=== PATIENT | female | born 1990 | race Caucasian/White ===

== ENCOUNTER 2018-05-05 08:43 | Emergency (ER) | payer MEDICAID, OTHER ==
[2018-05-05 08:46] VITALS: RESP 16
[2018-05-05] MEDS ORDERED: Sodium Chloride 0.9% 1,000 ML IV STA (09:22)
[2018-05-05 09:41] LABS: BASO % 0.2 % (0.0-2.0); EOS # 0.1 K/uL (0.0-0.7); EOS % 0.6 % (0.0-4.0); HEMOGLOBIN 12.7 g/dL (12.0-16.0); LYMPH # 1.8 K/uL (1.0-4.3); LYMPH % 20.9 % (20.0-40.0); MEAN CELL VOLUME 86.2 fl (81.0-99.0); MEAN CORPUSCULAR HEMOGLOBIN 29.4 pg (27.0-31.0); MEAN CORPUSCULAR HGB CONC 34.2 g/dL (33.0-37.0); MEAN PLATELET VOLUME 7.4 fl (7.2-11.7); MONO # 0.4 K/uL (0.0-0.8); MONO % 5.1 % (0.0-10.0); NEUT # 6.4 K/uL (1.8-7.0); NEUT % 73.2 % (50.0-75.0); NRBC % 0.2 % (0.0-0.0); RBC 4.31 Mil/uL (3.80-5.20); RED CELL DISTRIBUTION WIDTH 13.4 % (11.5-14.5); WHITE BLOOD COUNT 8.7 K/uL (4.8-10.8)
[2018-05-05 10:06] LABS: SQUAMOUS EPITHIAL 13 /hpf (0-5); URINE AMORPHOUS SEDIMENT RARE /ul (<OCC); URINE BACTERIA FEW (<OCC); URINE BILIRUBIN NEGATIVE (NEGATIVE); URINE BLOOD NEGATIVE (NEGATIVE); URINE CLARITY CLOUDY (Clear); URINE COLOR YELLOW (YELLOW); URINE GLUCOSE (UA) NEG (Normal); URINE LEUKOCYTE ESTERASE LARGE Leu/uL (Negative); URINE PROTEIN NEGATIVE (NEGATIVE); URINE UROBILINOGEN 0.2-1.0 mg/dL (0.2-1.0)
[2018-05-05 10:08] LABS: ALT/SGPT 19 U/L (9-52); AST/SGOT 16 U/L (14-36); BLOOD UREA NITROGEN 5 mg/dl (7-17); GFR AFRICAN-AMERICAN > 60; GFR NON-AFRICAN AMERICAN > 60
[2018-05-05 10:21] LABS: ALB/GLOB RATIO 1.1 (1.0-2.1); ALBUMIN 3.5 g/dL (3.5-5.0)
--- NOTE | 2018-05-05 12:20 | US ---
PROCEDURE: Ultrasound of the Kidneys HISTORY: 17 wks preg L flank pain COMPARISON: None available. TECHNIQUE: Sonogram of the kidneys. FINDINGS: RIGHT KIDNEY: Measures: 11.4 x 6.5 x 5.2 cm. Normal in size, contour and echogenicity. No stone, solid mass lesion or hydronephrosis visualized. LEFT KIDNEY: Measures: 11.0 x 5.6 x 5.4 cm. Normal in size, contour and echogenicity. No stone, solid mass lesion or hydronephrosis visualized. OTHER FINDINGS: None. IMPRESSION: Unremarkable renal sonogram.
--- NOTE | 2018-05-05 12:56 | US ---
PROCEDURE: OB Pelvic Ultrasound HISTORY: 17wk preg L flank pain and pelvic pain LMP: Unsure COMPARISON: None available. FINDINGS: UTERUS: A single intrauterine gestation with cardiac activity 132.3 beats per minute in variable presentation is noted. The placenta is anterior. The inferior placental border is more low lying and marginal. No complete covering over the internal cervical os noted. On the prevoid images question of a small subchorionic residual bleed here was initially raised measuring 1.4 x 4.5 x 1.3 cm in size. -however this could not be reproduced on the postvoid images. Findings are indeterminate . age (Ultrasound estimated): 19 weeks 0 days 1 week 2 days. Kyra-gestational hemorrhage: None. Date of delivery (Ultrasound estimated) : 09/29/2018 No uterine mass seen. Normal in size and appearance. No suspect discordance of biometric parameters noted. The visualized anatomy appears grossly unremarkable. CERVIX: Measures 6 cm. Long and closed. No cervical abnormality seen. RIGHT OVARY: Nonvisualized. LEFT OVARY: Nonvisualized. FREE FLUID: None. OTHER FINDINGS: None. IMPRESSION: Single intrauterine gestation with normal cardiac activity menstrual age by multiple ultrasound parameters is 19 weeks 0 days 1 week 2 days with an estimated date of delivery of 09/29/2018. Clinical dates are not definite. Anterior placenta and low lying./marginal. Possible perigestational/subchorionic hemorrhage here bordering the inferior placenta margin. This was initially questioned on the prevoid images but could not be reproduced on the postvoid images. The findings are indeterminate. No placenta covering the internal cervical os noted. No fluid in the endocervical canal seen. No adnexal masses noted Consider follow-up OB consultation
--- NOTE | 2018-05-05 13:26 | ED PDOC ---
HPI: General Adult Time Seen by Provider: 05/05/18 09:16 Chief Complaint (Nursing): Abdominal Pain Chief Complaint (Provider): Left Flank and Pelvic Pain History Per: Patient History/Exam Limitations: no limitations Onset/Duration Of Symptoms: Days (x2 weeks) Additional Complaint(s): 27 year old male with no significant past medical history presents to the ED with intermittent episodes of left flank and pelvic pain onset 2 weeks. She reports she saw her OB Dr. De La O who said it could be normal. Patient states she had a US last week showing that her placenta is low. She is due for a repeat US in a couple of weeks. Patient notes nausea, urinary frequency but denies diarrhea, fever, history of UTI, vaginal bleeding vaginal discharge, injury, trauma, or any other medical complaints. OB: Dr. De La O Past Medical History Reviewed: Historical Data, Nursing Documentation, Vital Signs Vital Signs: Last Vital Signs Temp 98.7 F 05/05/18 09:00 Pulse 88 05/05/18 09:00 Resp 16 05/05/18 09:00 BP 107/69 05/05/18 09:00 Pulse Ox 97 05/05/18 13:42 - Medical History PMH: No Chronic Diseases - Surgical History Surgical History: No Surg Hx - Family History Family History: States: Unknown Family Hx - Social History Current smoker - smoking cessation education provided: No Ex-Smoker (has not smoked in the last 12 months): No Alcohol: None Drugs: Denies - Home Medications Home Medications: Ambulatory Orders Medication Instructions Recorded Multivit/Folic Acid/I 1 tab PO DAILY 05/06/16 [] - Allergies Allergies/Adverse Reactions: Allergies Allergy/AdvReac Type Severity Reaction Status Date / Time No Known Allergies Allergy Verified 05/06/16 14:11 Review of Systems Genitourinary Female: Positive for: Frequency, Pelvic Pain, Other (Flank Pain) Physical Exam - Reviewed Nursing Documentation Reviewed: Yes Vital Signs Reviewed: Yes - Physical Exam Appears: Positive for: Non-toxic, No Acute Distress Head Exam: Positive for: ATRAUMATIC, NORMOCEPHALIC Skin: Positive for: Normal Color, Warm, Dry Eye Exam: Positive for: EOMI, Normal appearance, PERRL Neck: Positive for: Normal, Painless ROM, Supple Cardiovascular/Chest: Positive for: Regular Rate, Rhythm. Negative for: Murmur Respiratory: Positive for: Normal Breath Sounds. Negative for: Respiratory Distress Gastrointestinal/Abdominal: Positive for: Normal Exam, Soft. Negative for: Tenderness Back: Positive for: L CVA Tenderness (mild) Extremity: Positive for: Normal ROM (upper and lower extremities). Negative for : Deformity Neurologic/Psych: Positive for: Alert, Oriented (x3). Negative for: Motor/ Sensory Deficits - Laboratory Results Result Diagrams: 05/05/18 09:34 05/05/18 09:34 - ECG O2 Sat by Pulse Oximetry: 97 (RA) Pulse Ox Interpretation: Normal Medical Decision Making Medical Decision Making: Time: 9:20 Workup for threatened prenancy, renal colic, pyelonephritis or other Initial Plan: --CMP --U preg --Urine dip --CBC with differentials --NS --Tylenol 650 mg --Urine Culture --Urinalysis --US renal --US OB Time: 12:18 --US renal showed no hydronephrosis present. Time: 12:53 --Rocephin IV Time: 12:54 --Us OB showed 19 week gestation with normal heart rate. --Urinalysis revealed evidence of UTI. Given flank pain, patient was given Rocephin. Follow up with urine culture. Time: 1:25 --Patient medically cleared for discharge, with Keflex, urine culture and repeat US at OB. Patient advised to follow up with OB. Scribe Attestation: Documented by Kimberly Lema, acting as a scribe for Deonte Mario III, DO Provider Scribe Attestation: All medical record entries made by the Scribe were at my direction and personally dictated by me. I have reviewed the chart and agree that the record accurately reflects my personal performance of the history, physical exam, medical decision making, and the department course for this patient. I have also personally directed, reviewed, and agree with the discharge instructions and disposition. Disposition - Disposition Forms: Prevently (Cam[place]onian)
[2018-05-05] MEDS ORDERED: cefTRIAXone (Rocephin) 1 gm Inj ONE (14:21)
[2018-05-05 15:32] VITALS: BP 122/68; PULSE 68; TEMP 98.6; O2SAT 100
== END 2018-05-05 15:30 | disposition home or self-care (01) ==
LOC: H.ER 08:43
DX: O26.892 Other specified pregnancy related conditions, second trimester (principal); Z3A.19 19 weeks gestation of pregnancy
CPT/HCPCS: 76770; 76815; 80053; 81003; 81025; 85025; 87086; 96374; 99284; J0696; J7030